=== PATIENT | female | born 1980 | race Caucasian/White ===

== ENCOUNTER 2021-05-07 20:11 | Observation (INO) ==
[2021-05-07] MEDS ORDERED: Melatonin 3 MG TABLET PO PRN (22:43)
[2021-05-07] MEDS ORDERED: Naloxone 0.4 MG/ML INJ IVP PRN (22:43)
[2021-05-07] MEDS: 0.9 % Sodium Chloride 1,000 ML IVC SCH (23:27)
[2021-05-07] MEDS: Pantoprazole 40 MG in 0.9 % Sodium Chloride Mini Bag 100 ML IVC SCH (23:27)
[2021-05-07] MEDS: Octreotide 400 MCG in 0.9 % Sodium Chloride 100 ML IVC SCH (23:42)
[2021-05-08 01:35] LABS: Basophils % 0.2 %; Eosinophils # 0.2 K/mcL (0.0-0.6); Eosinophils % 0.9 %; Hematocrit 31.1 % (35.3-44.9); Hemoglobin 10.1 g/dL (11.5-15.4); Immature Granulocytes % 0.6 % (0-4); Lymphocytes # 1.5 K/mcL (0.6-4.6); Lymphocytes % 8.1 %; Mean Corpuscular HGB Conc 32.5 g/dL (31.6-35.5); Mean Corpuscular Hemoglobin 26.9 pg (28.0-33.3); Mean Corpuscular Volume 82.7 fL (83.0-100.0); Monocytes # 1.5 K/mcL (0.0-1.3); Monocytes % 8.3 %; Neutrophils # 14.8 K/mcL (1.6-8.9); Platelet Count 668 K/mcL (140-400); Red Blood Count 3.76 M/mcL (3.82-4.97); Red Cell Distribution Width 16.8 % (11.5-14.5); Segmented Neutrophils % 81.9 %; White Blood Count 18.1 K/mcL (4.3-11.1)
[2021-05-08 01:53] LABS: INR 1.5; Prothrombin Time 17.2 Seconds (9.4-12.1)
[2021-05-08 01:55] LABS: Activated Partial Thrombo Time 32.8 Seconds (26.0-36.0)
[2021-05-08 02:02] LABS: BUN/Creatinine Ratio 18 (6-26); Blood Urea Nitrogen 9 mg/dL (6-20); Calcium 10.1 mg/dL (8.6-10.3); Carbon Dioxide 26 mEq/L (23-29); Chloride 102 mEq/L (98-107); Chol/HDL Ratio 2.9 (0-4.9); Cholesterol 114 mg/dL (< 200); Glucose 74 mg/dL (70-105); HDL Cholesterol 39 mg/dL (40-59); Iron 13 mcg/dL (50-170); LDL Cholesterol,Calculated 52 mg/dL (< 100); Magnesium 1.9 mg/dL (1.6-2.6); Osmolality,Calculated 281 (280-300); Phosphorous 3.7 mg/dL (2.7-4.5); Potassium 3.8 mEq/L (3.5-5.1); Sodium 137 mEq/L (136-145); Triglycerides 113 mg/dL (< 150); eGFR For African Americans > 60 (> 60); eGFR For Non-African Americans > 60 (> 60)
[2021-05-08] MEDS ORDERED: Nicotine 7 MG PATCH.TD24 TD SCH (02:15)
[2021-05-08 02:17] LABS: Ferritin 41 ng/mL (10-120)
[2021-05-08 02:23] LABS: Folate 4.5 ng/mL (3.0-16.0)
[2021-05-08 02:55] LABS: % Iron Saturation 6 % (15-50); Transferrin 162 mg/dL (203-362)
[2021-05-08] MEDS: Pantoprazole 40 MG in 0.9 % Sodium Chloride Mini Bag 100 ML IVC SCH ×5 (03:56→23:15)
[2021-05-08] MEDS: 0.9 % Sodium Chloride 1,000 ML IVC SCH (05:07)
[2021-05-08] MEDS ORDERED: Acetaminophen 325 MG TABLET PO PRN (06:49)
[2021-05-08] MEDS: Ondansetron 4 MG/2 ML VIAL IVP PRN ×2 (08:42→23:12)
[2021-05-08 10:03] LABS: Hematocrit 29.9 % (35.3-44.9); Hemoglobin 9.7 g/dL (11.5-15.4)
[2021-05-08] MEDS: Octreotide 400 MCG in 0.9 % Sodium Chloride 100 ML IVC SCH (18:27)
[2021-05-08] MEDS ORDERED: Lidocaine -MPF 2% 5 ML VIAL ONE ×2 (19:01→20:12)
[2021-05-08] MEDS ORDERED: *HR* Propofol 200 MG/20 ML VIAL IVP ONE (19:01)
[2021-05-08] MEDS ORDERED: Ondansetron 4 MG/2 ML VIAL ONE (20:09)
[2021-05-08] MEDS ORDERED: Lidocaine -MPF 4% 5 ML AMPUL ONE (20:09)
[2021-05-08] MEDS ORDERED: *HR* FentaNYL (PF) 100 MCG/2 ML VIAL ONE (20:09)
[2021-05-08] MEDS ORDERED: Lidocaine HCL 4 ML Topical Solution (Laryng-O-Jet Kit Sterile Pak) TP ONE (20:12)
[2021-05-08] MEDS ORDERED: *HR* HYDROmorphone PF 0.5 MG/0.5 ML SYRINGE IVP PRN (20:13)
[2021-05-08] MEDS ORDERED: Iron Sucrose Complex 400 MG in 0.9 % Sodium Chloride 250 ML IVPB ONE (21:00)
[2021-05-09 05:48] LABS: Basophils % 0.1 %; Hematocrit 30.8 % (35.3-44.9); Hemoglobin 10.1 g/dL (11.5-15.4); Immature Granulocytes % 0.6 % (0-4); Lymphocytes # 0.8 K/mcL (0.6-4.6); Lymphocytes % 4.5 %; Mean Corpuscular HGB Conc 32.8 g/dL (31.6-35.5); Mean Corpuscular Hemoglobin 26.2 pg (28.0-33.3); Mean Platelet Volume 8.9 fL (9.4-12.4); Monocytes # 0.2 K/mcL (0.0-1.3); Monocytes % 1.1 %; Neutrophils # 16.5 K/mcL (1.6-8.9); Platelet Count 675 K/mcL (140-400); Red Blood Count 3.85 M/mcL (3.82-4.97); Red Cell Distribution Width 16.7 % (11.5-14.5); Segmented Neutrophils % 93.7 %; White Blood Count 17.6 K/mcL (4.3-11.1)
[2021-05-09] MEDS: Pantoprazole 40 MG in 0.9 % Sodium Chloride Mini Bag 100 ML IVC SCH ×2 (06:17→08:54)
[2021-05-09 07:32] LABS: BUN/Creatinine Ratio 21 (6-26); Blood Urea Nitrogen 10 mg/dL (6-20); Calcium 10.1 mg/dL (8.6-10.3); Carbon Dioxide 27 mEq/L (23-29); Chloride 98 mEq/L (98-107); Glucose 117 mg/dL (70-105); Osmolality,Calculated 280 (280-300); Phosphorous 3.1 mg/dL (2.7-4.5); Sodium 135 mEq/L (136-145); eGFR For African Americans > 60 (> 60); eGFR For Non-African Americans > 60 (> 60)
[2021-05-09] MEDS ORDERED: Gabapentin 300 MG CAPSULE PO SCH (09:00)
[2021-05-09] MEDS ORDERED: FLUoxetine 20 MG CAPSULE PO SCH (09:00)
[2021-05-09] MEDS ORDERED: Heparin 1,000 UNITS/500 mL 500 ML ONE ×2 (09:24→09:46)
[2021-05-09] MEDS ORDERED: *HR* FentaNYL (PF) 100 MCG/2 ML VIAL ONE (10:06)
[2021-05-09] MEDS ORDERED: *HR* Midazolam HCl 2 MG/2 ML VIAL ONE (10:07)
[2021-05-09] MEDS ORDERED: 0.9 % Sodium Chloride 500 ML ONE (10:07)
[2021-05-09] MEDS ORDERED: *HR* FentaNYL (PF) 100 MCG/2 ML VIAL IVP ONE (10:18)
[2021-05-09] MEDS ORDERED: *HR* Midazolam HCl 2 MG/2 ML VIAL IVP ONE (10:18)
[2021-05-09] MEDS ORDERED: ceFAZolin 1,000 MG in 0.9 % Sodium Chloride Mini Bag 100 ML IVPB SCH (11:00)
[2021-05-09] MEDS ORDERED: CeFAZolin 2,000 MG/120 ML BAG IVPB ONE (11:00)
[2021-05-09 11:06] VITALS: BP 129/89; PULSE 118; TEMP 97.9; O2SAT 93
== END 2021-05-09 14:05 | disposition home or self-care (01) ==
LOC: 3ANU → SUATTDRO 21:47
PROVIDERS: ADMIT Internal Medicine; ATTEND Internal Medicine

== ENCOUNTER 2021-06-24 17:01 | Inpatient (IN) ==
[2021-06-24] MEDS ORDERED: Isovue-370 500 ML BOTTLE IVP ONE (17:37)
[2021-06-24] MEDS ORDERED: Morphine Sulfate 2 MG/ML SYRINGE IVP ONE (17:43)
[2021-06-24] MEDS ORDERED: Ondansetron 4 MG/2 ML VIAL IVP PRN (17:43)
[2021-06-24] MEDS ORDERED: 0.9 % Sodium Chloride 1,000 ML IV ONE (17:43)
[2021-06-24 18:29] LABS: INR 2.3; Prothrombin Time 25.3 Seconds (9.4-12.1)
[2021-06-24 18:32] LABS: Activated Partial Thrombo Time 29.4 Seconds (26.0-36.0)
[2021-06-24 18:51] LABS: Alanine Aminotransferase 25 Units/L (7-52); Albumin 2.3 g/dL (3.5-5.7); Albumin/Globulin Ratio 0.9 (1.1-2.2); Alkaline Phosphatase 815 Units/L (34-104); Aspartate Amino Transferase 37 Units/L (13-39); BUN/Creatinine Ratio 57 (6-26); Bilirubin,Direct 0.4 mg/dL (0.0-0.2); Bilirubin,Indirect 0.5 mg/dL (0.0-1.0); Bilirubin,Total 0.9 mg/dL (0.3-1.0); Blood Urea Nitrogen 24 mg/dL (6-20); Calcium 6.8 mg/dL (8.6-10.3); Carbon Dioxide 30 mEq/L (23-29); Chloride 104 mEq/L (98-107); Globulin 2.5 g/dL (2.4-3.5); Glucose 104 mg/dL (70-105); Lipase 8 Units/L (11-82); Osmolality,Calculated 298 (280-300); Potassium 4.1 mEq/L (3.5-5.1); Sodium 142 mEq/L (136-145); Total Protein 4.8 g/dL (6.4-8.9); Troponin I 0.06 ng/mL (< 0.04); eGFR For African Americans > 60 (> 60); eGFR For Non-African Americans > 60 (> 60)
[2021-06-24 19:02] LABS: Influenza A PCR Negative (Negative); Influenza B PCR Negative (Negative); Resp. Syncytial Virus PCR Negative (Negative)
[2021-06-24 19:06] LABS: SARS-CoV-2 by PCR (In House) Negative (Negative)
[2021-06-24 19:23] LABS: Basophils % 0.1 %; Eosinophils % 0.1 %; Monocytes % 0.2 %; Nucleated Red Blood Cells 0.1 /100 WBC (0); Red Cell Distribution Width 26.9 % (11.5-14.5)
[2021-06-24 19:25] LABS: Hematocrit 25.6 % (35.3-44.9); Hemoglobin 8.3 g/dL (11.5-15.4); Immature Granulocytes % 1.5 % (0-4); Immature Platelets 10.2 % (1.1-6.1); Lymphocytes # 0.7 K/mcL (0.6-4.6); Lymphocytes % 2.3 %; Mean Corpuscular HGB Conc 32.4 g/dL (31.6-35.5); Mean Corpuscular Hemoglobin 27.9 pg (28.0-33.3); Mean Corpuscular Volume 85.9 fL (83.0-100.0); Mean Platelet Volume 11.1 fL (9.4-12.4); Monocytes # 0.1 K/mcL (0.0-1.3); Neutrophils # 29.4 K/mcL (1.6-8.9); Platelet Count 98 K/mcL (140-400); Red Blood Count 2.98 M/mcL (3.82-4.97); Segmented Neutrophils % 95.8 %
[2021-06-24 19:40] LABS: White Blood Count 30.7 K/mcL (4.3-11.1)
[2021-06-24] MEDS ORDERED: Piperacillin/Tazobactam 3.375 GM in 0.9 % Sodium Chloride Mini Bag 100 ML IVPB ONE (19:40)
[2021-06-24 20:23] LABS: VBG Ionized Calcium 0.92 mmol/L (1.15-1.35)
[2021-06-24] MEDS ORDERED: Naloxone 0.4 MG/ML INJ IVP PRN (20:57)
[2021-06-24] MEDS ORDERED: Melatonin 3 MG TABLET PO PRN (20:57)
[2021-06-24] MEDS ORDERED: Calcium Gluconate 1gm/50mL 1 GM/50 ML BAG IVPB SCH (21:30)
[2021-06-24] MEDS: Ondansetron 4 MG/2 ML VIAL IVP PRN (23:29)
[2021-06-25] MEDS: Nicotine 14 MG PATCH.TD24 TD SCH (03:45)
[2021-06-25] MEDS: Megestrol Acetate 400 MG/10 ML UDC PO SCH ×2 (03:46→08:35)
[2021-06-25 05:14] LABS: Basophils % 0.1 %; Hemoglobin 8.4 g/dL (11.5-15.4); Nucleated Red Blood Cells 0.1 /100 WBC (0)
[2021-06-25 05:16] LABS: Hematocrit 26.3 % (35.3-44.9); Immature Granulocytes % 1.6 % (0-4); Immature Platelets 11.5 % (1.1-6.1); Lymphocytes # 0.7 K/mcL (0.6-4.6); Lymphocytes % 2.3 %; Mean Corpuscular HGB Conc 31.9 g/dL (31.6-35.5); Mean Corpuscular Hemoglobin 27.8 pg (28.0-33.3); Mean Corpuscular Volume 87.1 fL (83.0-100.0); Monocytes % 0.1 %; Neutrophils # 29.7 K/mcL (1.6-8.9); Red Blood Count 3.02 M/mcL (3.82-4.97); Red Cell Distribution Width 27.2 % (11.5-14.5); Segmented Neutrophils % 95.9 %
[2021-06-25 05:35] LABS: Alanine Aminotransferase 23 Units/L (7-52); Albumin 2.3 g/dL (3.5-5.7); Albumin/Globulin Ratio 0.8 (1.1-2.2); Alkaline Phosphatase 821 Units/L (34-104); Aspartate Amino Transferase 35 Units/L (13-39); BUN/Creatinine Ratio 50 (6-26); Bilirubin,Total 1.1 mg/dL (0.3-1.0); Blood Urea Nitrogen 21 mg/dL (6-20); Carbon Dioxide 30 mEq/L (23-29); Chloride 106 mEq/L (98-107); Globulin 2.8 g/dL (2.4-3.5); Glucose 91 mg/dL (70-105); Magnesium 1.4 mg/dL (1.6-2.6); Osmolality,Calculated 299 (280-300); Phosphorous 2.6 mg/dL (2.7-4.5); Platelet Count 94 K/mcL (140-400); Potassium 4.2 mEq/L (3.5-5.1); Sodium 143 mEq/L (136-145); Total Protein 5.1 g/dL (6.4-8.9); eGFR For African Americans > 60 (> 60); eGFR For Non-African Americans > 60 (> 60)
[2021-06-25 05:37] LABS: Platelet Estimate Decreased (Normal)
[2021-06-25] MEDS ORDERED: Magnesium Sulfate 1 GM/102 ML PIGGYBACK IVPB ONE (07:44)
[2021-06-25] MEDS: Piperacillin/Tazobactam 3.375 GM in 0.9 % Sodium Chloride Mini Bag 100 ML IVPB SCH ×3 (08:34→21:12)
[2021-06-25] MEDS: Gabapentin 300 MG CAPSULE PO SCH ×2 (08:35→15:47)
[2021-06-25] MEDS: Ondansetron 4 MG/2 ML VIAL IVP PRN ×2 (08:44→15:47)
[2021-06-25] MEDS ORDERED: *HR* Phytonadione 5 MG TABLET PO ONE (10:17)
[2021-06-25] MEDS ORDERED: predniSONE 20 MG TABLET PO SCH (11:45)
[2021-06-25] MEDS: Magic Mouthwash 10 ML UD Cup PO SCH (17:29)
[2021-06-25] MEDS ORDERED: Prochlorperazine 10 MG/2 ML VIAL IVP ONE (21:06)
[2021-06-26] MEDS: Gabapentin 300 MG CAPSULE PO SCH ×4 (03:22→21:59)
[2021-06-26] MEDS: Nicotine 14 MG PATCH.TD24 TD SCH ×2 (03:22→21:58)
[2021-06-26] MEDS: Piperacillin/Tazobactam 3.375 GM in 0.9 % Sodium Chloride Mini Bag 100 ML IVPB SCH ×3 (05:12→21:59)
[2021-06-26 05:33] LABS: Basophils % 0.1 %; Eosinophils % 0.1 %; Hematocrit 22.9 % (35.3-44.9); Hemoglobin 7.3 g/dL (11.5-15.4); Immature Granulocytes % 1.9 % (0-4); Immature Platelets 11.9 % (1.1-6.1); Lymphocytes # 0.9 K/mcL (0.6-4.6); Lymphocytes % 3.5 %; Mean Corpuscular HGB Conc 31.9 g/dL (31.6-35.5); Mean Corpuscular Hemoglobin 27.7 pg (28.0-33.3); Mean Corpuscular Volume 86.7 fL (83.0-100.0); Mean Platelet Volume 10.9 fL (9.4-12.4); Monocytes # 0.1 K/mcL (0.0-1.3); Monocytes % 0.2 %; Neutrophils # 24.7 K/mcL (1.6-8.9); Nucleated Red Blood Cells 0.1 /100 WBC (0); Red Blood Count 2.64 M/mcL (3.82-4.97); Red Cell Distribution Width 26.8 % (11.5-14.5); Segmented Neutrophils % 94.2 %; White Blood Count 26.2 K/mcL (4.3-11.1)
[2021-06-26 05:41] LABS: Platelet Count 74 K/mcL (140-400)
[2021-06-26 05:54] LABS: Alanine Aminotransferase 22 Units/L (7-52); Albumin 2.2 g/dL (3.5-5.7); Albumin/Globulin Ratio 0.9 (1.1-2.2); Alkaline Phosphatase 799 Units/L (34-104); Aspartate Amino Transferase 33 Units/L (13-39); BUN/Creatinine Ratio 43 (6-26); Bilirubin,Total 0.8 mg/dL (0.3-1.0); Blood Urea Nitrogen 18 mg/dL (6-20); Calcium 6.5 mg/dL (8.6-10.3); Carbon Dioxide 29 mEq/L (23-29); Chloride 106 mEq/L (98-107); Globulin 2.5 g/dL (2.4-3.5); Glucose 106 mg/dL (70-105); Magnesium 1.5 mg/dL (1.6-2.6); Osmolality,Calculated 294 (280-300); Phosphorous 2.5 mg/dL (2.7-4.5); Sodium 141 mEq/L (136-145); Total Protein 4.7 g/dL (6.4-8.9); Troponin I 0.04 ng/mL (< 0.04); eGFR For African Americans > 60 (> 60); eGFR For Non-African Americans > 60 (> 60)
[2021-06-26 05:57] LABS: Hypochromasia Present (Not Present); Stomatocytes 1+ (Not Present); Target Cells 1+ (Not Present)
[2021-06-26 05:58] LABS: Anisocytosis 2+ (Not Present); Platelet Estimate Decreased (Normal)
[2021-06-26] MEDS: Magic Mouthwash 10 ML UD Cup PO SCH ×3 (08:11→17:24)
[2021-06-26] MEDS: Megestrol Acetate 400 MG/10 ML UDC PO SCH (11:06)
[2021-06-26] MEDS: Magnesium Oxide 400 MG TABLET PO SCH (11:11)
[2021-06-26] MEDS: methylPREDNISolone 125 MG/2 ML VIAL IM SCH (11:12)
[2021-06-26] MEDS: Ondansetron 4 MG/2 ML VIAL IVP PRN (12:26)
[2021-06-26 13:39] LABS: INR 1.8; Prothrombin Time 19.7 Seconds (9.4-12.1)
[2021-06-26] MEDS ORDERED: haloperidoL 1 MG TABLET PO PRN (14:07)
[2021-06-26] MEDS ORDERED: Haloperidol Lactate 5 MG/ML VIAL IVP ONE (14:30)
[2021-06-26] MEDS: FLUoxetine 20 MG CAPSULE PO SCH (18:43)
[2021-06-26] MEDS ORDERED: OLANZapine 5 MG TAB.RAPDIS PO SCH (21:00)
[2021-06-27] MEDS: Piperacillin/Tazobactam 3.375 GM in 0.9 % Sodium Chloride Mini Bag 100 ML IVPB SCH (05:24)
[2021-06-27] MEDS: Gabapentin 300 MG CAPSULE PO SCH (08:04)
[2021-06-27] MEDS: Magnesium Oxide 400 MG TABLET PO SCH (08:05)
[2021-06-27] MEDS: Megestrol Acetate 400 MG/10 ML UDC PO SCH (08:05)
[2021-06-27] MEDS: Magic Mouthwash 10 ML UD Cup PO SCH ×2 (08:05→11:11)
[2021-06-27] MEDS: FLUoxetine 20 MG CAPSULE PO SCH (08:05)
[2021-06-27] MEDS: methylPREDNISolone 125 MG/2 ML VIAL IM SCH (09:23)
[2021-06-27 09:30] LABS: Hematocrit 26.3 % (35.3-44.9); Hemoglobin 8.3 g/dL (11.5-15.4); Immature Platelets 15.9 % (1.1-6.1); Mean Corpuscular HGB Conc 31.6 g/dL (31.6-35.5); Mean Corpuscular Hemoglobin 27.9 pg (28.0-33.3); Mean Corpuscular Volume 88.3 fL (83.0-100.0); Red Blood Count 2.98 M/mcL (3.82-4.97); Red Cell Distribution Width 26.8 % (11.5-14.5)
[2021-06-27 09:36] LABS: INR 1.5; Prothrombin Time 17.1 Seconds (9.4-12.1)
[2021-06-27 09:49] LABS: Platelet Count 70 K/mcL (140-400)
[2021-06-27 09:52] LABS: White Blood Count 31.2 K/mcL (4.3-11.1)
[2021-06-27 10:17] LABS: Magnesium 1.5 mg/dL (1.6-2.6); Phosphorous 1.6 mg/dL (2.7-4.5)
[2021-06-27 10:20] LABS: Anisocytosis 2+ (Not Present); Lymphocytes # 0.6 K/mcL (0.6-4.6); Monocytes # 0.6 K/mcL (0.0-1.3)
[2021-06-27 10:21] LABS: Polychromasia 1+ (Not Present); Target Cells 1+ (Not Present)
[2021-06-27 10:22] LABS: Platelet Estimate Decreased (Normal)
[2021-06-27] MEDS ORDERED: haloperidoL 1 MG TABLET PO SCH (10:30)
[2021-06-27 10:37] LABS: Alanine Aminotransferase 21 Units/L (7-52); Albumin 2.4 g/dL (3.5-5.7); Albumin/Globulin Ratio 0.9 (1.1-2.2); Alkaline Phosphatase 666 Units/L (34-104); Aspartate Amino Transferase 31 Units/L (13-39); BUN/Creatinine Ratio 30 (6-26); Bilirubin,Total 0.7 mg/dL (0.3-1.0); Blood Urea Nitrogen 14 mg/dL (6-20); Calcium 6.6 mg/dL (8.6-10.3); Carbon Dioxide 25 mEq/L (23-29); Chloride 104 mEq/L (98-107); Globulin 2.8 g/dL (2.4-3.5); Glucose 128 mg/dL (70-105); Osmolality,Calculated 290 (280-300); Potassium 4.1 mEq/L (3.5-5.1); Sodium 139 mEq/L (136-145); Total Protein 5.2 g/dL (6.4-8.9); eGFR For African Americans > 60 (> 60); eGFR For Non-African Americans > 60 (> 60)
[2021-06-27 11:29] VITALS: BP 141/94; PULSE 99; TEMP 97.4; O2SAT 96
== END 2021-06-27 15:08 | disposition hospice, inpatient (51) | DRG 240 ==
LOC: 3ANU 17:01 → EMEROOARM 17:01 → SUATTDRO 21:02 → OBSVTOIN 21:02 → 3ANU 21:22
PROVIDERS: ADMIT Internal Medicine; ATTEND Family Medicine

== ENCOUNTER 2021-06-27 11:40 | Inpatient (IN) ==
[2021-06-27] MEDS ORDERED: Ondansetron 4 MG/2 ML VIAL IVP PRN (12:28)
[2021-06-27] MEDS ORDERED: *HR* LORazepam Oral Conc 2 MG/ML PO PRN (12:28)
[2021-06-27] MEDS ORDERED: Scopolamine Patch 1.5 MG PATCH.TD72 TD SCH (12:30)
[2021-06-27] MEDS ORDERED: Melatonin 3 MG TABLET PO PRN (13:09)
[2021-06-27] MEDS: haloperidoL 1 MG TABLET PO SCH ×2 (16:05→20:01)
[2021-06-27] MEDS: Morphine Sulfate Oral CONC 10 MG/0.5 ML ORAL.SYG PO PRN (16:05)
[2021-06-27] MEDS: Piperacillin/Tazobactam 3.375 GM in 0.9 % Sodium Chloride Mini Bag 100 ML IVPB SCH ×2 (16:06→23:55)
[2021-06-27] MEDS: Magic Mouthwash 10 ML UD Cup PO SCH (16:06)
[2021-06-27] MEDS: Gabapentin 300 MG CAPSULE PO SCH (20:00)
[2021-06-27] MEDS: Sennosides/Docusate Sodium TABLET PO SCH (20:01)
[2021-06-28] MEDS: Gabapentin 300 MG CAPSULE PO SCH ×2 (07:57→20:29)
[2021-06-28] MEDS: Sennosides/Docusate Sodium TABLET PO SCH ×2 (07:57→20:30)
[2021-06-28] MEDS: haloperidoL 1 MG TABLET PO SCH ×3 (07:57→20:29)
[2021-06-28] MEDS: predniSONE 20 MG TABLET PO SCH (07:57)
[2021-06-28] MEDS: Magic Mouthwash 10 ML UD Cup PO SCH ×3 (07:57→15:18)
[2021-06-28] MEDS: FLUoxetine 20 MG CAPSULE PO SCH (07:58)
[2021-06-28] MEDS: Piperacillin/Tazobactam 3.375 GM in 0.9 % Sodium Chloride Mini Bag 100 ML IVPB SCH ×2 (07:58→15:19)
[2021-06-28] MEDS: Morphine Sulfate Oral CONC 10 MG/0.5 ML ORAL.SYG PO PRN ×3 (07:58→20:27)
[2021-06-28] MEDS: Nicotine 14 MG PATCH.TD24 TD SCH (07:58)
[2021-06-28] MEDS ORDERED: Megestrol Acetate 400 MG/10 ML UDC PO SCH (09:00)
[2021-06-28] MEDS: Morphine Sulfate ER (12 HR) 15 MG TABLET.ER PO SCH ×2 (10:59→17:57)
[2021-06-28] MEDS ORDERED: Mirtazapine 15 MG TABLET PO SCH (21:00)
[2021-06-29] MEDS: Morphine Sulfate Oral CONC 10 MG/0.5 ML ORAL.SYG PO PRN (00:58)
[2021-06-29] MEDS: Piperacillin/Tazobactam 3.375 GM in 0.9 % Sodium Chloride Mini Bag 100 ML IVPB SCH ×2 (01:19→08:49)
[2021-06-29] MEDS: Morphine Sulfate ER (12 HR) 15 MG TABLET.ER PO SCH (06:36)
[2021-06-29 07:31] VITALS: BP 113/82; PULSE 114; TEMP 98.1; O2SAT 95
[2021-06-29] MEDS: FLUoxetine 20 MG CAPSULE PO SCH (08:49)
[2021-06-29] MEDS: Gabapentin 300 MG CAPSULE PO SCH (08:49)
[2021-06-29] MEDS: predniSONE 20 MG TABLET PO SCH (08:49)
[2021-06-29] MEDS: Magic Mouthwash 10 ML UD Cup PO SCH (08:49)
[2021-06-29] MEDS: Nicotine 14 MG PATCH.TD24 TD SCH (08:49)
[2021-06-29] MEDS: haloperidoL 1 MG TABLET PO SCH (08:49)
[2021-06-29] MEDS: Sennosides/Docusate Sodium TABLET PO SCH (08:50)
== END 2021-06-29 13:45 | disposition hospice, home (50) | DRG 951 ==
LOC: 2ANU 15:41
PROVIDERS: ADMIT Internal Medicine Hospice and Palliative Medicine; ATTEND Internal Medicine Hospice and Palliative Medicine